=== PATIENT | female | born 1990 | race Caucasian/White ===

== ENCOUNTER 2016-08-27 17:27 | Emergency (ER) | payer OTHER ==
[~2016-08-27] VITALS: Ht 167.6 cm; Wt 62.7 kg
[2016-08-27 18:30] LABS: BASOPHILS # (AUTO) 0.03 K/uL (0.00-0.20); BASOPHILS % (AUTO) 0.3 % (0.0-2.0); EOSINOPHILS # (AUTO) 0.29 K/uL (0.00-0.70); EOSINOPHILS % (AUTO) 3.79 % (1.0-6.0); HEMATOCRIT 39.1 % (36-46); HEMOGLOBIN 13.3 g/dL (12.0-16.0); LYMPHOCYTES # (AUTO) 2.8 K/uL (1.0-4.8); LYMPHOCYTES % (AUTO) 36.3 % (22.0-44.0); MEAN CORPUSCULAR HEMOGLOBIN 29.5 pg (26.0-34.0); MEAN CORPUSCULAR VOLUME 87 fL (80-100); MONOCYTES # (AUTO) 0.4 K/uL (0.1-1.0); NEUTROPHILS # (AUTO) 4.2 K/uL (1.8-7.7); NEUTROPHILS % (AUTO) 54.5 % (40.0-70.0); PLATELET COUNT (AUTO) 282 K/uL (150-450); RED BLOOD CELL COUNT(AUTO) 4.51 MIL/uL (4.00-5.20); RED CELL DISTRIBUTION WIDTH 12.4 % (11.5-14.5); WHITE BLOOD COUNT (AUTO) 7.7 K/uL (4.5-11.0)
[2016-08-27 18:44] LABS: ANION GAP 5 mmol/L (8-16); CALCIUM, TOTAL 9.1 mg/dL (8.8-10.5); CARBON DIOXIDE 31 mmol/L (22-29); CHLORIDE 105 mmol/L (98-107); CREATININE 0.74 mg/dL (0.60-1.30); GLOMERULAR FILTR. RATE CALC > 60 mL/min (>60); POTASSIUM 4.3 mmol/L (3.5-5.1); SODIUM SERUM 141 mmol/L (136-145); UREA NITROGEN, BLOOD 7 mg/dL (7-18)
[2016-08-27 18:51] LABS: ALANINE AMINOTRANSFERASE 16 U/L (12-78); ALBUMIN 3.5 g/dL (3.4-5.0); ASPARTATE AMINOTRANSFERASE 16 U/L (15-37); BILIRUBIN,TOTAL 0.2 mg/dL (0.1-1.0); TOTAL PROTEIN, SERUM 7.3 g/dL (6.4-8.2)
[2016-08-27] MEDS ORDERED: MORPHINE SULFATE 4 MG/ML SYRINGE IVP ONE (19:15)
[2016-08-27] MEDS ORDERED: SODIUM CHLORIDE 0.9% 1,000 ML IV ONE (19:15)
[2016-08-27] MEDS ORDERED: ONDANSETRON HCL 4 MG/2 ML VIAL IVP ONE (19:15)
[2016-08-27 19:45] LABS: APPEARANCE,URINE CLOUDY (CLEAR); GLUCOSE, URINE (UA) NEGATIVE (NEGATIVE); KETONES,URINE NEGATIVE (NEGATIVE); LEUKOCYTE ESTERASE ,URINE SMALL (NEGATIVE); OCCULT BLOOD,URINE NEGATIVE (NEGATIVE); PH,URINE 7.5 (5.0-8.0); PROTEIN,URINE NEGATIVE (NEGATIVE)
[2016-08-27 19:52] LABS: ADD UA MICROSCOPIC YES; RBC,URINE 0-2 /HPF (0-2); SQUAMOUS EPITHELIAL CELL,UR Moderate /LPF (None Seen)
[2016-08-27 19:53] LABS: AMORPHOUS SEDIMENT,UR Few /LPF (None Seen)
[2016-08-27] MEDS ORDERED: FAMOTIDINE 10 MG/ML 2 ML VIAL IVP ONE (21:45)
[2016-08-27] MEDS ORDERED: DiphenhydrAMINE HCL 50 MG/ML VIAL IVP ONE (21:45)
[2016-08-27] MEDS ORDERED: KETOROLAC TROMETHAMINE 30 MG/ML VIAL IVP ONE (21:45)
[2016-08-27 22:05] VITALS: BP 111/62
== END 2016-08-27 22:12 | disposition home or self-care (01) ==
LOC: EMS 17:35
DX: T78.49XA Other allergy, initial encounter (principal); N39.0 Urinary tract infection, site not specified
CPT/HCPCS: 36415; 76700; 80053; 81001; 83690; 84703; 85025; 87077; 87086; 96361; 96374; 96375; 99285; J1200; J1885; J2270; J2405; J3490; J7030

== ENCOUNTER 2016-11-27 16:18 | Emergency (ER) | payer OTHER ==
[~2016-11-27] VITALS: Ht 167.6 cm; Wt 62.2 kg
[2016-11-27] MEDS ORDERED: HYDROmorphone 2 MG/ML SYRINGE IM ONE (19:00)
[2016-11-27] MEDS ORDERED: PROMETHAZINE HCL 25 MG/ML VIAL IM ONE (19:00)
[2016-11-27] MEDS ORDERED: METAXALONE 800 MG TABLET PO ONE (19:00)
[2016-11-27 19:12] VITALS: BP 125/72
== END 2016-11-27 19:39 | disposition home or self-care (01) ==
LOC: EMS 16:26
DX: S30.0XXA Contusion of lower back and pelvis, initial encounter (principal); W01.0XXA Fall on same level from slipping, tripping and stumbling without subsequent striking against object, initial encounter; Y93.89 Activity, other specified; Y92.89 Other specified places as the place of occurrence of the external cause; Y99.8 Other external cause status
CPT/HCPCS: 96372; 99284; J1170; J2550

== ENCOUNTER 2018-10-24 08:47 | Emergency (ER) | payer MEDICAID, OTHER ==
[~2018-10-24] VITALS: Ht 165.1 cm; Wt 63.6 kg
[2018-10-24] MEDS ORDERED: KETOROLAC TROMETHAMINE 60 MG/2 ML VIAL IM ONE (10:30)
[2018-10-24] MEDS ORDERED: HYDROCODONE/ACETAMINOPHEN 5-325 MG TABLET PO ONE (10:30)
[2018-10-24 11:40] VITALS: BP 118/75
== END 2018-10-24 11:43 | disposition home or self-care (01) ==
LOC: EMS 08:50
DX: G89.29 Other chronic pain (principal); M54.5 Low back pain; M41.9 Scoliosis, unspecified
CPT/HCPCS: 81025; 96372; 99283; J1885

== ENCOUNTER 2018-12-19 13:28 | Emergency (ER) | payer BC, MEDICAID ==
[~2018-12-19] VITALS: Ht 167.6 cm; Wt 63.6 kg
[2018-12-19] MEDS ORDERED: TraMADol HCL 50 MG TABLET PO ONE (14:15)
[2018-12-19] MEDS ORDERED: LIDOCAINE 5% TRANSDERMAL PATCH TD ONE (14:15)
[2018-12-19 15:35] VITALS: BP 116/84
== END 2018-12-19 15:41 | disposition home or self-care (01) ==
LOC: EMS 13:29
DX: S30.0XXA Contusion of lower back and pelvis, initial encounter (principal); W54.1XXA Struck by dog, initial encounter; Y93.89 Activity, other specified; Y92.096 Garden or yard of other non-institutional residence as the place of occurrence of the external cause; Y99.8 Other external cause status
CPT/HCPCS: 72100

== ENCOUNTER 2019-01-02 08:19 | Emergency (ER) | payer BC, MEDICAID ==
[~2019-01-02] VITALS: Ht 167.6 cm; Wt 63.0 kg
[2019-01-02] MEDS: CYCLOBENZAPRINE HCL 10 MG TABLET PO ONE (09:02)
[2019-01-02] MEDS: TraMADol HCL 50 MG TABLET PO ONE (09:02)
[2019-01-02 09:20] VITALS: BP 119/75
== END 2019-01-02 09:44 | disposition home or self-care (01) ==
LOC: EMS 08:20
DX: M54.5 Low back pain (principal); G89.29 Other chronic pain

== ENCOUNTER 2019-02-19 15:26 | Emergency (ER) | payer BC, MEDICAID ==
[~2019-02-19] VITALS: Ht 167.6 cm; Wt 63.6 kg
[2019-02-19] MEDS ORDERED: HYDROCODONE/ACETAMINOPHEN 5-325 MG TABLET PO ONE (17:15)
[2019-02-19 17:48] VITALS: BP 116/79
== END 2019-02-19 17:53 | disposition home or self-care (01) ==
LOC: EMS 15:27
DX: G89.29 Other chronic pain (principal); M54.5 Low back pain

== ENCOUNTER 2019-03-09 14:20 | Emergency (ER) | payer BC, MEDICAID, OTHER ==
[~2019-03-09] VITALS: Ht 167.6 cm; Wt 63.6 kg
[2019-03-09] MEDS ORDERED: IBUP-2271 PO (14:26)
[2019-03-09] MEDS ORDERED: ASPI-988 PO (14:26)
[2019-03-09] MEDS ORDERED: SODIUM CHLORIDE 0.9% 1,000 ML IV ONE (15:00)
[2019-03-09] MEDS ORDERED: METOCLOPRAMIDE HCL 5 MG/ML 2 ML VIAL IVP ONE (15:00)
[2019-03-09] MEDS ORDERED: DEXAMETHASONE SOD PHOS 4 MG/ML 5 ML VIAL IVP ONE (15:00)
[2019-03-09] MEDS ORDERED: DiphenhydrAMINE HCL 50 MG/ML VIAL IVP ONE (15:00)
[2019-03-09 15:07] LABS: BASOPHILS % (AUTO) 1.3 % (0.0-2.0); EOSINOPHILS % (AUTO) 2.7 % (1.0-6.0); HEMATOCRIT 38.7 % (36-46); HEMOGLOBIN 13.1 g/dL (12.0-16.0); LYMPHOCYTES # (AUTO) 2.3 K/uL (1.0-4.8); LYMPHOCYTES % (AUTO) 37.9 % (22.0-44.0); MEAN CORPUSCULAR HEMOGLOBIN 28.7 pg (26.0-34.0); MEAN CORPUSCULAR HGB CONC 33.8 G/dL (31.0-37.0); MEAN CORPUSCULAR VOLUME 85 fL (80-100); MONOCYTES # (AUTO) 0.4 K/uL (0.1-1.0); MONOCYTES % (AUTO) 6.2 % (2.0-9.0); NEUTROPHILS # (AUTO) 3.2 K/uL (1.8-7.7); NEUTROPHILS % (AUTO) 51.9 % (40.0-70.0); PLATELET COUNT (AUTO) 300 K/uL (150-450); RED BLOOD CELL COUNT(AUTO) 4.55 MIL/uL (4.00-5.20); RED CELL DISTRIBUTION WIDTH 12.9 % (11.5-14.5)
[2019-03-09 15:17] LABS: CARBON DIOXIDE 26 mmol/L (22-29); CHLORIDE 106 mmol/L (98-107); POTASSIUM 3.9 mmol/L (3.5-5.1); SODIUM SERUM 141 mmol/L (136-145)
[2019-03-09 15:18] LABS: ANION GAP 9 mmol/L (8-16); CALCIUM, TOTAL 8.6 mg/dL (8.8-10.5); CREATININE 0.65 mg/dL (0.60-1.30); GLOMERULAR FILTR. RATE CALC > 60 mL/min (>60); GLUCOSE,RANDOM 87 mg/dL (70-110); UREA NITROGEN, BLOOD 10 mg/dL (7-18)
[2019-03-09 15:29] LABS: ALANINE AMINOTRANSFERASE 16 U/L (12-78); ALBUMIN 3.7 g/dL (3.4-5.0); ALKALINE PHOSPHATASE 81 U/L (46-116); ASPARTATE AMINOTRANSFERASE 17 U/L (15-37); BILIRUBIN,TOTAL 0.4 mg/dL (0.1-1.0); HCG,QUANTITATIVE < 1 mIU/mL (0-6); TOTAL PROTEIN, SERUM 7.3 g/dL (6.4-8.2)
[2019-03-09 16:35] VITALS: BP 138/60
== END 2019-03-09 16:38 | disposition home or self-care (01) ==
LOC: EMS 14:21
DX: G43.909 Migraine, unspecified, not intractable, without status migrainosus (principal); R11.2 Nausea with vomiting, unspecified
CPT/HCPCS: 36415; 70450; 80053; 84702; 85025; 96361; 96374; 96375; 99284; J1100; J1200; J2765; J7030

== ENCOUNTER 2019-06-04 10:36 | Emergency (ER) | payer BC, OTHER ==
[~2019-06-04] VITALS: Ht 167.6 cm; Wt 63.6 kg
[~2019-06-04 10:36] MED LIST: ASPI-988 PO; IBUP-2271 PO
[2019-06-04] MEDS ORDERED: CYCLOBENZAPRINE HCL 10 MG TABLET PO ONE (12:15)
[2019-06-04] MEDS ORDERED: TraMADol HCL 50 MG TABLET PO ONE (12:15)
[2019-06-04 12:17] VITALS: BP 104/68
== END 2019-06-04 12:36 | disposition home or self-care (01) ==
LOC: EMS 10:36
DX: G89.29 Other chronic pain (principal); M54.5 Low back pain; G35 Multiple sclerosis; G43.909 Migraine, unspecified, not intractable, without status migrainosus; Z98.890 Other specified postprocedural states

== ENCOUNTER 2019-07-10 13:56 | Emergency (ER) | payer BC, OTHER ==
[~2019-07-10] VITALS: Ht 167.6 cm; Wt 71.0 kg
[2019-07-10] MEDS ORDERED: ONDANSETRON HCL 4 MG TABLET PO ONE (14:45)
[2019-07-10] MEDS ORDERED: KETOROLAC TROMETHAMINE 10 MG TABLET PO ONE (14:45)
[2019-07-10 16:08] VITALS: BP 104/61
== END 2019-07-10 16:41 | disposition home or self-care (01) ==
LOC: EMS 13:57
DX: A08.4 Viral intestinal infection, unspecified (principal); J02.8 Acute pharyngitis due to other specified organisms; G43.909 Migraine, unspecified, not intractable, without status migrainosus
CPT/HCPCS: 87430; 99283; Q0162